=== PATIENT | male | born 2000 | race Caucasian/White ===

== ENCOUNTER → 2022-12-17 | Outpatient (CLI) | payer SELFPAY ==
[2022-12-17 10:30] LABS: Cholesterol 136 mg/dL (200); High Density Lipoprotein 69 mg/dL; Rheumatoid Factor < 10.0 IU/mL (<15); Triglycerides 26 mg/dL; Very Low Density Lipoprotein 5 mg/dL (5-40)
[2022-12-18 14:09] LABS: PROEL- A/G Ratio 1.5 (0.7-1.7); PROEL- Albumin 4.2 g/dL (2.9-4.4); PROEL- Alpha-1 Globulin 0.2 g/dL (0.0-0.4); PROEL- Alpha-2 Globulin 0.6 g/dL (0.4-1.0); PROEL- Beta Globulin 0.9 g/dL (0.7-1.3); PROEL- Globulin, Total 2.8 g/dL (2.2-3.9)
== END | disposition home or self-care (01) ==
LOC: MTLAB 08:58
PROVIDERS: Referring Provider Dermatology; Visit Provider Dermatology
DX: L30.9 Dermatitis, unspecified (principal)
CPT/HCPCS: 36415; 80061; 83036; 84165; 86431